=== PATIENT | female | born 1945 | race Caucasian/White ===

== ENCOUNTER 2021-12-21 13:02 | Emergency (ER) | payer MEDICARE, OTHER ==
[2021-12-21] MEDS: Ondansetron 4 MG/2 ML SDV IVPUSH ONE (13:21)
[2021-12-21] MEDS: fentaNYL 50 MCG/ML SDV IVPUSH ONE ×2 (13:25→15:05)
[2021-12-21 14:05] LABS: CHLORIDE,CL 101 mmol/L (98-107); SODIUM,NA 136 mmol/L (136-145)
[2021-12-21 14:09] LABS: ANION GAP 12.7 mmol/L (5-15)
== END 2021-12-21 15:18 | disposition short-term general hospital (02) ==
LOC: VM.ED 13:02
DX: S82.852A Displaced trimalleolar fracture of left lower leg, initial encounter for closed fracture (principal); I10 Essential (primary) hypertension; Z88.0 Allergy status to penicillin; Z88.2 Allergy status to sulfonamides; Z88.8 Allergy status to other drugs, medicaments and biological substances; Z88.1 Allergy status to other antibiotic agents; Z91.09 Other allergy status, other than to drugs and biological substances; W10.8XXA Fall (on) (from) other stairs and steps, initial encounter
CPT/HCPCS: 27818; 36415; 73610-LT; 80053; 85025; 93005; 93010; 96374; 96375; 99284; 99285-25; J2405; J3010

== ENCOUNTER 2023-05-16 10:46 | Emergency (ER) | payer MEDICARE, OTHER ==
[2023-05-16 11:19] LABS: BILIRUBIN,URINE SMALL (NEGATIVE); COLOR,URINE YELLOW (YELLOW); GLUCOSE,URINE NEGATIVE (NEGATIVE); KETONES,URINE TRACE mg/dL (NEGATIVE); LEUKOCYTE ESTERASE,URINE MODERATE (NEGATIVE); NITRITE,URINE NEGATIVE (NEGATIVE); OCCULT BLOOD,URINE MODERATE (NEGATIVE); PROTEIN,URINE >=300 mg/dL (NEGATIVE); UROBILINOGEN,URINE 0.2 EU/dL (0.2)
[2023-05-16 11:27] LABS: APPEARANCE,URINE CLOUDY (CLEAR); BACTERIA,URINE OCCASIONAL /HPF (NOT SEEN); MUCUS,URINE OCCASIONAL /LPF (NOT SEEN); RBC,URINE 50-75 /HPF (NOT SEEN); SQUAMOUS EPITHELIAL CELLS,UR FEW /HPF (NOT SEEN); WBC,URINE 75-100 /HPF (NOT SEEN)
== END 2023-05-16 11:44 | disposition home or self-care (01) ==
LOC: VM.ED 10:46
DX: N39.0 Urinary tract infection, site not specified (principal); I10 Essential (primary) hypertension; Z79.899 Other long term (current) drug therapy
CPT/HCPCS: 81001; 87086; 87088; 87186; 99283